=== PATIENT | female | born 1940 | race Caucasian/White ===

== ENCOUNTER 2016-11-29 01:50 | Inpatient (IN) | payer OTHER, MEDICARE ==
[~2016-11-29] VITALS: Ht 152.4 cm; Wt 81.6 kg
[~2016-11-29 01:50] MED LIST: AROMASIN25 M1 PO; ASPIRIN EC81 M1 PO; HUMALOG100 UNIT/2; INVOKAMET XR 51 EAC1 PO; INVOKANA; LEVEMIR100 UNIT/1 SC; LEXAPRO20 M1 PO; LISINOPRIL2.5 M1 PO; MAGNESIUM OXID400 M1 PO; PRAVACHOL40 M1 PO; SINGULAIR10 M1 PO; SYMBICORT 16010.2 GM INH; VICTOZA 2-0.6 MG/0.1 SC; ZANTAC150 M1 PO
--- NOTE | 2016-11-29 12:31 | Admission Core Measures ---
Admission Meds I reviewed the following Meds: Current Medications Sig/Haily Start time Last Medication Dose Stop Time Status Admin Acetaminophen 975 MG ONCE 11/29 0000 NR (Tylenol) 11/29 2358 Oxycodone HCl 10 MG ONCE 11/29 NR (Roxicodone) 11/29 2358 Ropivacaine 500 ML ONCE ONE 11/29 1015 AC (NAROPIN) 12/01 1214 ON-Q Ball 1 BAG Acute Coronary Syndrome Inclusion Criteria ACS Diagnosis No Inpatient Core Measures LDL Reminder: If No, please order W/I first 24hr of stay Congestive Heart Failure Inclusion Criteria CHF Diagnosis No Cerebrovascular accident Inclusion Criteria CVA/TIA Diagnosis No Inpatient Core Measures Bedside Swallow Eval Reminder: If BSE failed, place ST order Antithrombotic Reminder: Order Antithrombotic Medication by end of day 2 Antithrombotic Reminder: Document Reason Antithrombotic Not ordered by end of day 2 AFIB/Flutter Reminder: If Present, add to problem list AFIB/Flutter Reminder: Order Anticoag Medication for pts with AFIB/Flutter Atherosclerosis Reminder: If Present, add to problem list LDL Reminder: If No, please order W/I first 24hr of stay PT Order Reminder: If No, please order Venous thromboembolism Inpatient Core Measures VTE Risk Factors: Age > 40, Surgery No [facility] VTE prophylaxis d/t No contraindications No VTE Pharm Prophylaxis d/t No contraindications Inclusion Criteria - Per Current guidelines, there needs to be overlap - treatment for the first 5 days of Warfarin therapy. - Parenteral Anticoagulation (IV or SC) needs to be - given along with Warfarin therapy. VTE Diagnosis No VTE Type NONE VTE Confirmed by (Test) NONE Problem List As ranked by this Provider includes Assessment & Plan 1. Status post total left knee replacement HOME MEDS Home Med List Aspirin (Ecotrin*) 81 MG TABLET.DR 1 TAB PO DAILY PROPHO (Reported) Budesonide/Formoterol Fumarate (Symbicort 160-4.5 Mcg Inhaler) 160 MCG-4.5 MCG/ ACTUATION HFA.AER.AD 2 PUF INH BID ASTHMA (Reported) Canagliflozin/Metformin HCl (Invokamet XR 50-1,000 MG Tab) 50 MG-1,000 MG TAB.BP.24H 1 TAB PO BID DM II (Reported) Escitalopram Oxalate (Lexapro) 20 MG TABLET 1 TAB PO NIGHTLY ANXIETY / DEPRESSION (Reported) Exemestane (Aromasin) 25 MG TABLET 1 TAB PO DAILY CANCER (Reported) Insulin Detemir (Levemir) 100 UNIT/ML VIAL 60 UNITS SC DAILY DM II (Reported) Liraglutide (Victoza 2-Salvador) 0.6 MG/0.1 ML (18 MG/3 ML) PEN.INJCTR 1.8 UNITS SC DAILY DM II (Reported) Lisinopril 2.5 MG TABLET 1 TAB PO DAILY HTN (Reported) Magnesium Oxide 400 MG TABLET 1 TAB PO DAILY PROPHO (Reported) Montelukast Sodium (Singulair) 10 MG TABLET 1 TAB PO DAILY ASTHMA (Reported) Pravastatin Sodium (Pravachol) 40 MG TABLET 1 TAB PO DAILY CHOLESTEROL ( Reported) Ranitidine HCl (Zantac) 150 MG TABLET 1 TAB PO BID PRN GERD (Reported)
--- NOTE | 2016-11-29 12:47 | Patient Discharge Instructions ---
Discharge Instructions General Discharge Information You were seen/treated for: Left knee DJD/osteoarthritis You had these procedures: Left total knee replacement Watch for these problems: Fever greater than 101, excessive drainage from the wound, inability to bear weight on the operative side Call Surgeon to remove: Radha Do not soak the wound: Yes Daily wet to dry dressings: No No bath, but you may shower: Yes Other wound care: Dry dressing change once daily starting postoperative day #2. You may shower as desired. No baths. No ointments of any kind. Ice as needed for comfort. Diet Continue normal diet: Yes Recommended Diet: Diabetic Activity Full Activity/No Limits: No Activity Self Limited: Yes Pounds, do NOT lift more than: 5 Activity Limited to: Weight bear as tolerated Other activity limits: Avoid strenuous activity. You may ambulate as desired with rolling walker and progressed per PT recommendations. No driving while using narcotics and until cleared by M.D. Acute Coronary Syndrome Inclusion Criteria At DC or during hospital stay patient has or had the following: ACS DIAGNOSIS No Discharge Core Measures Meds if any: Prescribed or Continued at Discharge Meds if any: NOT Prescribed or Continued at Discharge Congestive Heart Failure Inclusion Criteria At DC or during hospital stay patient has or had the following: CHF DIAGNOSIS No Discharge Core Measures Meds if any: Prescribed or Continued at Discharge Meds if any: NOT Prescribed or Continued at Discharge Cerebrovascular accident Inclusion Criteria At DC or during hospital stay patient has or had the following: CVA/TIA Diagnosis No Discharge Core Measures Meds if any: Prescribed or Continued at Discharge Meds if any: NOT Prescribed or Continued at Discharge Venous thromboembolism Inclusion Criteria VTE Diagnosis No VTE Type NONE VTE Confirmed by (Test) NONE Discharge Core Measures - Per Current guidelines, there needs to be overlap - treatment for the first 5 days of Warfarin therapy. - If discharged on Warfarin prior to 5 days of - overlap therapy, the patient will need to be - assessed for post discharge needs including - *Post discharge parental anticoagulation - *Warfarin and/or parental anticoagulation education - *Follow up date to check INR post discharge At least 5 days overlap therapy as Inpatient No Meds if any: Prescribed or Continued at Discharge Note: Overlap Therapy is Warfarin and Anticoagulant Meds if any: NOT Prescribed or Continued at Discharge
--- NOTE | 2016-11-29 12:54 | Surgical Discharge Summary ---
Visit Information Visit Dates Admission Date: 11/29/16 Discharge Date: 12/01/16 History of Present Illness Chief Complaint: Left knee pain, left knee DJD/osteoarthritis Medical History Cardiovascular: hypertension, hyperlipidemia Respiratory: COPD Endocrine: diabetes Surgical History Pertinent Surgical History: knee replacement Review of Systems: See H&P Hospital Course Course Attending Physician: DELGADO RAE MD Primary Care Physician: CHARLENE SOLIS MD Hospital Course: Patient was admitted to [facility] for elective surgery on 11/29/2016 and underwent left total knee replacement. The patient tolerated the procedure well, without complications. The postoperative course remained uneventful. Pain was well controlled with oral pain medication, tolerated a regular diet, and voiding without difficulty. The patient was evaluated by physical therapy during admission, was deemed stable from a medical standpoint, and was discharged. Allergies: Coded Allergies: Penicillins (Severe, SWELLING 11/24/16) Uncoded Allergies: IVP DYE (Severe, SWELLING 11/24/16) Significant Procedures: Left total knee replacement on 11/29/[address] Rae Disposition Summary Disposition Principal Diagnosis: Left knee DJD/osteoarthritis Additional Diagnosis: Hypertension, hyperlipidemia, insulin dependent diabetes, COPD Discharge Disposition: home health services Discharge Instructions General Discharge Information Code Status: Full Code Patient's Diet: Diabetic Patient's Activity: Avoid strenuous activity. You may ambulate as desired with rolling walker and progressed per PT recommendations. No driving while using narcotics and until cleared by M.D. Follow-Up Instructions/Appts: Incision: Dry dressing. May shower. No baths. No ointments of any kind. Ice as needed. Bowel regimen: Colace and or MiraLAX Weight-bearing as tolerated Follow-up with Dr. Rae in 6 weeks. Call office for fevers greater than 101.5, excessive drainage or inability to bear weight on operative extremity. Visiting nurse will remove romina. Medications at Discharge Discharge Medications: Stop taking the following medications: Aspirin (Ecotrin*) 81 MG TABLET. ORAL DAILY Continue taking these medications: Budesonide/Formoterol Fumarate (Symbicort 160-4.5 Mcg Inhaler) 160 MCG-4.5 MCG/ ACTUATION HFA.AER.AD 2 Puff Inhale through mouth TWICE DAILY Comments: Last Taken: 12/01/16 Time: 0800 Pravastatin Sodium (Pravachol) 40 MG TABLET 1 Tablet ORAL DAILY Comments: Last Taken: 11/30/16 Time: 4PM Montelukast Sodium (Singulair) 10 MG TABLET 1 Tablet ORAL DAILY Comments: Last Taken: 12/01/16 Time: 0800 Lisinopril (Lisinopril) 2.5 MG TABLET 1 Tablet ORAL DAILY Escitalopram Oxalate (Lexapro) 20 MG TABLET 1 Tablet ORAL NIGHTLY Comments: Last Taken: 11/30/16 Time: 9PM Exemestane (Aromasin) 25 MG TABLET 1 Tablet ORAL DAILY Comments: NOT GIVEN IN HOSPITAL Insulin Lispro (Humalog) 100 UNIT/ML VIAL 4X PER DAY Instructions: SLIDING SCALE Comments: NOT GIVEN IN HOSPITAL (NOVOLOG WAS ADMINISTERED IN HOSPITAL DURING MEALS) Liraglutide (Victoza 2-Salvador) 0.6 MG/0.1 ML (18 MG/3 ML) PEN.INJCTR 1.8 Units Inject into fatty tissue DAILY Comments: NOT GIVEN IN HOSPITAL Insulin Detemir (Levemir) 100 UNIT/ML VIAL 60 Units Inject into fatty tissue DAILY Comments: Last Taken: 12/01/16 Time: 0800 Magnesium Oxide (Magnesium Oxide) 400 MG TABLET 1 Tablet ORAL DAILY Comments: Last Taken: 12/01/16 Time: 0800 Ranitidine HCl (Zantac) 150 MG TABLET 1 Tablet ORAL TWICE DAILY as needed for GERD Comments: NOT GIVEN IN HOSPITAL (PEPCID WAS GIVEN INSTEAD) Canagliflozin/Metformin HCl (Invokamet XR 50-1,000 MG Tab) 50 MG-1,000 MG TAB.BP.24H 1 Tablet ORAL TWICE DAILY Comments: Last Taken: 12/01/16 Time: 0800 Start taking the following new medications: Aspirin (Ecotrin*) 325 MG TABLET.DR 1 Tablet ORAL TWICE DAILY Days = 28 No Refills Comments: Last Taken: 12/01/16 Time: 0800 Docusate Sodium (Colace) 100 MG CAPSULE 1 Capsule ORAL TWICE DAILY Days = 7 No Refills Comments: Last Taken: 12/01/16 Time: 0800 Polyethylene Glycol 3350 (Miralax) 17 GRAM POWD.PACK 1 Packet ORAL DAILY Days = 7 No Refills Comments: Last Taken: 12/01/16 Time: 0800 Hydromorphone HCl (Dilaudid) 2 MG TABLET 1-2 Tablet ORAL EVERY 4 HOURS NEEDED as needed for PAIN Qty = 36 No Refills Instructions: PLEASE ATTEMPT PAIN CONTROL WITH ONE TAB FIRST. REPEAT X 1 IF NEEDED. Comments: Last Taken: 12/01/16 Time: Morphine Sulfate (Ms Contin) 15 MG TABLET.ER 1 Tablet ORAL TWICE DAILY Qty = 5 No Refills
[2016-11-29] MEDS ORDERED: ASPIRIN EC325 M2 PO (13:58)
[2016-11-29] MEDS ORDERED: DILAUDID2 M1 PO (13:58)
[2016-11-29] MEDS ORDERED: MS CONTIN15 M2 PO (13:58)
[2016-11-29] MEDS ORDERED: COLACE100 M1 PO (13:58)
[2016-11-29] MEDS ORDERED: MIRALAX17 G1 PO (13:58)
[2016-11-29 15:00] VITALS: BP 120/68
--- NOTE | 2016-11-29 15:00 | NUR ---
PT ARRIVED TO FLOOR VIA STRETCHER FROM PACU, RA FARHAD O2 @ 89%- THIS RN PUT PATIENT ON 2L NC PT O2 @ 90%, NO C/O PAIN, VSS, +PEDAL PULSES, PT C/O NUMBNESS TO LLE. IV INTACT, FLUIDS RUNNING, MEDICATIONS ORDERED FOR 12PM NOT GIVEN DUE TO MEDICATIONS NOT UP TO FLOOR, ORIENTED TO ROOM AND CALL LIGHT, ADMISSIONM COMPLETE, FAMILY @ BEDSIDE, WILL CONTINUE TO MONITOR.
--- NOTE | 2016-11-29 16:03 | NUR ---
Physical Therapy: Consult received. Spoke with nursing. Pt currently experiencing extreme numbness in BLE. Not appropraite for PT evaluation at this time. Will follow up as pt is appropriate. Thank you.
--- NOTE | 2016-11-29 16:18 | PN- Orthopedic ---
Subjective Subjective: Postop check Pt is now POD #0 s/p knee replacement. She has no major complaints at this time. Pain is well-controlled. She is tolerating ice chips and is requesting dayana corona. Dexter catheter remains in place. Otherwise denies headache, dizziness, chest pain, shortness of breath. Objective Vital Signs and I&Os Intake & Output 11/29 1600 11/29 0800 /15 0000 / 1600 11/28 0800 11/28 0000 Intake Total Output Total 800 Balance -800 Output, Urine 800 Physical Exam: Gen.: Patient is resting, but easily arousable. No acute distress. Cardiac: Regular Pulmonary: Lungs are bilaterally. Extremities: The left lower extremity dressing is clean, dry, and intact. Lower extremity sensation is intact, but still somewhat diminished in the foot. Assessment/Plan Assessment/Plan Patient is a 76-year-old female with a past medical history significant for insulin-dependent diabetes, asthma, hypertension, hyperlipidemia, breast cancer, who is now postoperative day #0 status post left total knee replacement. She remains stable from a surgical standpoint. Plan: -PT consult for mobilization. WBAT with rolling walker. -Pain control with morphine for now. Po dilaudid when tolerating po. -Advance diet as tolerated. Heplock IV when tolerating adequate po. -Zofran for nausea as needed. -Colace and miralax for bowel regimen. -ASA 325 bid for DVT ppx. Alps and Andrés's as well. -Ancef x 2 doses for prophylaxis. -Home meds resumed, except for diabetes medications. Monitor Accu-Cheks and administer insulin per sliding scale. -Leave Dexter catheter in place overnight for I's and O's. Will DC in the morning if tolerating by mouth and voiding well. -Plan for discharge also likely in 2 days. Core Measures/Miscellaneous Dexter Catheter Date In: 11/29/16 Still Needed? Yes Venous Thromboembolism VTE Risk Factors: Age > 40, Obesity, Surgery VTE Contraindications: No Contraindications VTE Diagnosis: No VTE Type: NONE VTE Confirmed by (Test): NONE Beta Nitin Is Beta Nitin a Home Med? No Antibiotics Is Patient on Antibiotics? Yes If Yes: prophylaxis
[2016-11-29 17:00] VITALS: BP 106/70
--- NOTE | 2016-11-29 17:04 | Operative Report ---
Operative/Inv Procedure Report Surgery Date: 11/29/16 Name of Procedure: 1. Left total knee replacement 2. Right knee cortisone injection Pre-Operative Diagnosis: Bilateral primary knee DJD Post-Operative Diagnosis: Same Estimated Blood Loss: 50ml to 100ml Surgeon/Light Cleaner: DELGADO RAE MD Anesthesia: block Operative/Procedure Note Note: Description of Procedure: The patient was taken to the operating room and positively identified. After induction of spinal anesthesia and administration of appropriate pre-operative antibiotics, the patient was positioned supine on the operating room table and all bony prominences were well padded. The right knee was prepped sterilely and injected with a mixture of 2 mL of Depo -Medrol and 8 mL of half percent Marcaine. A Band-Aid was placed over the injection site. A well-padded pneumatic tourniquet was placed on the left upper thigh. After performing a surgical timeout, the left lower extremity was prepped and draped in the usual sterile fashion. After exsanguination with Esmarch the tourniquet was inflated to 250mm of mercury. A standard medial parapatellar approach was made to the knee. This was carried down through skin and subcutaneous tissue to the level of the fascia. Meticulous hemostasis was maintained with Bovie electrocautery. The extensor mechanism and patellar retinaculum were opened sharply and the patella was everted. The infrapatellar fat was resected in order to improve exposure. Osteophytes were trimmed from the patella and femoral condyles and the patella was re-everted and tucked laterally. A medial release was performed and the cruciate ligaments were resected. The tibia was then subluxed anteriorly. Utilizing the appropriate extra-medullary guide, the proximal tibia was trimmed perpendicular to the long axis of the tibial shaft. Attention was then turned to the femur. After opening the medullary canal, the distal femoral cut was made in 6 degrees of valgus utilizing the appropriate intra-medullary guide. The extension gap was checked and found to be appropriate. The femur was then sized and the remainder of the femoral cuts were made with a size 2 4-in-1 femoral cutting guide. The flexion gap was checked and found to be symmetric and appropriate. The knee was then trialed with a size 2 femoral component, a size 2 tibial component and a size 11 mm polyethylene insert. The patella was trimmed to accept an A 32 patella. This yielded excellent range of motion, stability and patellar tracking. All trial components were removed and the knee was copiously irrigated with sterile saline. All components were cemented into place with [place] Simplex cement. All the components were of the [place] Tri[employer]lon knee system of the above stated sizes. The knee was again irrigated after cementation. The extensor mechanism and patellar retinaculum were repaired using interrupted #1 vicryl suture. The skin was re-approximated with 2-0 vicryl and closed with romina. A sterile dressing was applied, the tourniquet was deflated, the patient was awakened and taken to the recovery room in satisfactory condition.
[2016-11-29 19:22] VITALS: BP 122/60
[2016-11-29 21:01] VITALS: BP 124/60
[2016-11-29 23:00] VITALS: BP 130/62
[2016-11-30 00:49] VITALS: BP 104/50
[2016-11-30 05:06] VITALS: BP 118/60
[2016-11-30 08:54] LABS: ABSOLUTE BASOPHIL COUNT 0 /CUMM (0.0-0.2); ABSOLUTE EOSINOPHIL COUNT 0 /CUMM (0.0-0.7); ABSOLUTE LYMPH COUNT 0.9 /CUMM (1.2-3.4); ABSOLUTE MONOCYTE COUNT 0.9 /CUMM (0.10-0.60); BASOPHIL % 0 % (0.0-2.0); EOSINOPHIL % 0 % (0-5); HEMATOCRIT 34.4 % (37-47); MEAN CORPUSCULAR HGB CONC 32.9 G/DL (33.0-37.0); MEAN CORPUSCULAR VOLUME 82.2 FL (81.0-99.0); MEAN PLATELET VOLUME 8.6 FL (7.4-10.4); PLATELET COUNT 214 /CUMM (130-400); RBC DISTRIBUTION WIDTH 15.9 % (11.5-14.5); RED BLOOD CELL CT 4.18 /CUMM (4.20-5.40); WHITE BLOOD CELL COUNT 11.8 /CUMM (4.8-10.8)
--- NOTE | 2016-11-30 09:13 | PN- Orthopedic ---
Subjective Subjective: No complaints. Out of bed to chair. Reportedly dizziness with initial standing, but currently not dizzy sitting in chair. No shortness of breath. No chest pains. Tolerating diet. Her goal is to go home with services. Objective Vital Signs and I&Os Vital Signs Date Time Temp Pulse Resp B/P B/P Pulse O2 O2 Flow FiO2 Mean Ox Delivery Rate 11/30 0506 98.4 67 20 118/60 95 Nasal 2.5L Cannula 11/30 0049 98.5 70 20 104/50 95 Nasal Cannula 11/30 0000 93 Nasal 2.5L Cannula 11/29 2300 98.7 69 20 130/62 94 Nasal 2.5L Cannula 11/29 2101 98.9 69 20 124/60 95 Nasal 2.5L Cannula 11/29 1922 99.1 70 20 122/60 95 Nasal 2.5L Cannula 11/29 1911 Nasal 2.5L Cannula 11/29 1700 97.7 64 20 106/70 94 Nasal 2.0L Cannula 11/29 1600 90 Nasal 2.0L Cannula 11/29 1500 97.7 63 18 120/68 90 Nasal 2.0L Cannula Intake & Output 11/30 1600 11/30 0800 11/30 0000 11/29 1600 11/29 0800 11/29 0000 Intake Total 250 640 Output Total 1000 1000 800 Balance -750 -360 -800 Intake, IV 10 400 Intake, Oral 240 240 Output, Urine 1000 1000 800 Patient 180 lb Weight Weight Reported by Patient Measurement Method Physical Exam: General - alert & oriented x 3. out of bed to chair. no acute distress. Lungs - clear bilaterally. no w/r/r. Cardiac - s1s2. Abdomen - soft. nontender. - beatty draining clear, yellow urine Extremities - warm bilaterally. left leg dressing c/d/i. nvi. calves soft and nontender b/l. on q in place. Current Medications: Current Medications Sig/Haily Start time Last Medication Dose Route Stop Time Status Admin Acetaminophen 650 MG Q4P PRN 11/29 1545 AC PO Acetaminophen 975 MG ONCE 11/29 0000 DC PO 11/29 2359 Aspirin 325 MG BID 11/29 1239 AC 11/29 PO 7 Budesonide/ 2 PUF BID 11/29 2200 AC 11/29 Formoterol Fumarate INH 8 Docusate Sodium 100 MG BID 11/29 1237 AC 11/29 PO 2127 Escitalopram Oxalate 20 MG AT BEDTIME 11/29 2200 AC 11/29 PO 2128 Famotidine 20 MG DAILY 11/30 1000 AC PO Hydromorphone HCl 2 MG Q4P PRN 11/29 1545 AC PO Hydromorphone HCl 4 MG Q4P PRN 11/29 1545 AC PO Insulin Aspart 0 TIDAC 11/30 0800 AC SC Insulin Human Regular 0 TIDAC/HS 11/29 1700 DC SC Magnesium Oxide 400 MG DAILY 11/30 1000 AC PO Montelukast Sodium 10 MG DAILY 11/30 1000 AC PO Morphine Sulfate 2 MG Q3P PRN 11/29 1545 AC IV Ondansetron HCl 4 MG Q6P PRN 11/29 1545 AC IV Oxycodone HCl 10 MG ONCE 11/29 0000 DC PO 11/29 2359 Polyethylene Glycol 17 GM DAILY 11/29 1237 AC PO Pravastatin Sodium 40 MG 1700 11/29 1700 AC 11/29 PO 1738 Ropivacaine 500 ML ONCE ONE 11/29 1015 AC ON-Q Ball 1 BAG INJ 12/01 1214 Sodium Chloride 1,000 ML .[id number] 11/29 1545 AC IV Vancomycin HCl 1,000 MG ONCE ONE 11/29 2200 DC 11/29 Sodium Chloride 250 ML IV 11/297 Results Last 48 Hours of Labs: Laboratory Tests 11/30 0702 Chemistry Sodium Pending Potassium Pending Chloride Pending Carbon Dioxide Pending Anion Gap Pending BUN Pending Creatinine Pending BUN/Creatinine Ratio Pending Hematology CBC w Diff Pending WBC Pending RBC Pending Hgb Pending Hct Pending MCV Pending MCH Pending RDW Pending Plt Count Pending MPV Pending Gran % Pending Lymphocytes % Pending Monocytes % Pending Eosinophils % Pending Basophils % Pending Absolute Granulocytes Pending Absolute Lymphocytes Pending Absolute Monocytes Pending Absolute Eosinophils Pending Absolute Basophils Pending PUBS MCHC Pending Assessment/Plan Assessment/Plan Patient is a 76-year-old female with a pmh significant for iddm, asthma, htn, hld, breast cancer, who is now POD#1 s/p left total knee replacement, right knee cortisone injection for b/l primary knee DJD tolerating diabetic diet. d/c iv fluids. continue dilaudid / morphine prn pain continue PT. wbat with rolling walker d/c beatty melissa-operative ancef completed f/u labs asa bid - dvt ppx accuchecks / ss coverage dressing change and on q removal tomorrow, POD#2 goal is for discharge to home, likely POD#3 will d/w Core Measures/Miscellaneous Beatty Catheter Date In: 11/29/16 Venous Thromboembolism VTE Risk Factors: Age > 40, Obesity, Surgery VTE Contraindications: No Contraindications VTE Diagnosis: No VTE Type: NONE VTE Confirmed by (Test): NONE Beta Nitin Is Beta Nitin a Home Med? No Antibiotics Is Patient on Antibiotics? Yes If Yes: prophylaxis If Yes: prophylaxis
[2016-11-30 09:40] VITALS: BP 116/68
[2016-11-30 09:50] LABS: GRANULOCYTE % 84.7 % (42.2-75.2)
--- NOTE | 2016-11-30 13:19 | NUR ---
WOUND CARE: REQUESTED BY NURSING STAFF TO EVALUATE PT FOR SKIN ALTERIOATIONS PRESENT ON ADMISSION - S/P LEFT KNEE SURGERY- FAMILY VISITING AT CHAIRSIDE - HX OBTAINED FROM PT - PT STATED SHE HAD WOUNDS FOR A FEW DAYS, AND HAS RECENTLY FELT INCREASED TENDERNESS TO HER "BUTT" - UPON ASSESSMENT, PT NOTED WITH A 6 CM SUPERFICIAL SLIT ALONG COCCYX PRESENTS CLINICALLY STAGE 2 PRESSURE INJURY 6 X 0.2 CM PINK DERMAL FILL - 0.2 CM CIRCULAR AREA OF DTI PRESENTS BRUISING TO DISTAL ASPECT OF WOUND - PT EDUCATED RE: IMPORTANCE OF REPOSITIONING IN BED AND IN CHAIR AND STATED AN UNDERSTANDING - SLIGHTLY MACERATED TO PERIWOUND TISSUE - SCANT DRNG - NO EVIDENCE OF INFECTION IMPRESSION: STAGE 2 PRESSURE INJURY COCCYX WITH AREA OF SUSPECTED DTI AT DISTAL ASPECT RECOMMENDATION: CLEANSE AREA WITH WATER AND PAT DRY - APPLY ZINC OXIDE OINTMENT FB COVER SPONGE TO PREVENT SKIN SKIN CONTACT AND WICK AWAY EXCESS MOISTURE - CONT TO ENCOURAGE Q 1 HOUR REOPSITIONING IN CHAIR AND Q15 MIN POSITION SHIFTS WHEN OOB - CONT TO UTILIZE POSITIONING SHEETS FOR SIDE SIDE REPOSITIONING WIB TO PREVENT SHEERING TRAUMA TO TISSUE
[2016-11-30 13:59] VITALS: BP 112/70
[2016-11-30 22:28] VITALS: BP 126/60
[2016-12-01 06:51] VITALS: BP 144/70
--- NOTE | 2016-12-01 07:16 | PN- Orthopedic ---
Subjective Subjective: POC S/P LEFT TKA NO MAJOR COMPLAINTS THIS AM DENIES CP, SOB, NO N+V WITH DIET Objective Vital Signs and I&Os Vital Signs Date Time Temp Pulse Resp B/P B/P Pulse O2 O2 Flow FiO2 Mean Ox Delivery Rate 12/01 0651 98.4 80 18 144/70 95 Nasal 2.0L Cannula 12/01 0645 86 Room Air 11/30 2228 99.1 75 20 126/60 96 11/30 1359 98.5 65 20 112/70 96 Room Air 11/30 0940 98.1 68 18 116/68 99 Room Air Intake & Output 12/01 0800 12/01 0000 11/30 1600 11/30 0800 11/30 0000 11/29 1600 Intake Total 380 360 800 250 640 Output Total 550 180 755 8895 1000 800 Balance -170 -90 200 -750 -360 -800 Intake, IV 20 10 400 Intake, Oral 360 360 800 240 240 Output, Urine 550 922 903 9389 1000 800 Patient 180 lb Weight Weight Reported by Patient Measurement Method Physical Exam: CV: RRR LUNGS: CLEAR ABD: SOFT, +BS EXT: DRSG CHANGED, WOUND C/D/I NO CALF TENDERNESS BILAT DISTAL CMS INTACT BILAT Assessment/Plan Assessment/Plan ORTHO STABLE PLAN HOME TODAY F/U DR RAE 6WEEKS CONT CURRENT REGIME Core Measures/Miscellaneous Dexter Catheter Date In: 11/29/16 Venous Thromboembolism VTE Risk Factors: Age > 40, Obesity, Surgery VTE Contraindications: No Contraindications VTE Diagnosis: No VTE Type: NONE VTE Confirmed by (Test): NONE Beta Nitin Is Beta Nitin a Home Med? No Antibiotics Is Patient on Antibiotics? Yes If Yes: prophylaxis
== END 2016-12-01 11:55 | disposition home health service (06) | DRG 470 ==
LOC: SDA 01:50 → 2NA 01:50 → ENRESERV 13:17 → 2NA 15:00 → ENPENDDIS 12-01 07:16 → 2NA 12-01 11:55
PROVIDERS: Physician Assistant Surgical; ADMIT Orthopaedic Surgery
PROC: 3E0U33Z Introduction of Anti-inflammatory into Joints, Percutaneous Approach (ICD-10-PCS; principal; 2016-11-29)
PROC: 0SRD0J9 Replacement of Left Knee Joint with Synthetic Substitute, Cemented, Open Approach (ICD-10-PCS; principal; 2016-11-29)
DX: M17.0 Bilateral primary osteoarthritis of knee (principal); J44.9 Chronic obstructive pulmonary disease, unspecified; E11.319 Type 2 diabetes mellitus with unspecified diabetic retinopathy without macular edema; I10 Essential (primary) hypertension; E78.5 Hyperlipidemia, unspecified; E66.9 Obesity, unspecified; Z68.35 Body mass index [BMI] 35.0-35.9, adult; K21.9 Gastro-esophageal reflux disease without esophagitis; Z79.84 Long term (current) use of oral hypoglycemic drugs; Z79.4 Long term (current) use of insulin
CPT/HCPCS: 2NAP; 82436; 88305; 97110-GO; 97116-GO; 97161-GP; 97530-GO; C1713; J1030; J2795; J3370; J3490; J7040